=== PATIENT | male | born 1990 | race Caucasian/White ===

== ENCOUNTER 2017-12-25 07:51 | Day surgery (SDC) | payer OTHER ==
[2017-12-25] MEDS ORDERED: PROPOFOL 40 ML (08:36)
[2017-12-25] MEDS ORDERED: LIDOCAINE 2% (SDV) 5 ML INJ (08:36)
== END 2017-12-25 10:03 | disposition home or self-care (01) ==
LOC: GIL 07:51
DX: K29.50 Unspecified chronic gastritis without bleeding (principal)
CPT/HCPCS: 43239; 88305

== ENCOUNTER 2018-03-03 08:07 | Emergency (ER) | payer OTHER ==
[2018-03-03] MEDS: FAMOTIDINE 20 MG INJ IV (09:04)
[2018-03-03] MEDS: SOD CHLORIDE 0.9% 1,000 ML IV (09:04)
[2018-03-03] MEDS: LIDOCAINE/MYLANTA 40 ML BTL PO (09:04)
[2018-03-03] MEDS: ONDANSETRON 4 MG INJ IV (09:04)
[2018-03-03 09:06] LABS: ADD MAN DIFF? NO
[2018-03-03 09:08] LABS: WHITE BLOOD COUNT 14.1 10^3/ul (4.8-10.8)
[2018-03-03 09:08] LABS: BASOPHIL # 0.1 10^3/ul (0.0-0.1); BASOPHILS % 0.4 % (0.0-2.0); HEMATOCRIT 48.4 % (42.0-52.0); HEMOGLOBIN 16.6 g/dl (14.0-18.0); LYMPHOCYTES # 2.3 10^3/ul (0.8-2.9); LYMPHOCYTES % 16.1 % (15.0-51.0); MEAN CORPUSCULAR HEMOGLOBIN 30.5 pg (29.0-33.0); MEAN CORPUSCULAR HGB CONC 34.3 g/dl (32.0-37.0); MEAN CORPUSCULAR VOLUME 88.8 fl (82.0-101.0); MEAN PLATELET VOLUME 10.6 fl (7.4-10.4); MONOCYTE # 1.1 10^3/ul (0.3-0.9); MONOCYTES % 7.6 % (0.0-11.0); NEUTROPHIL # 10.7 10^3/ul (1.6-7.5); NEUTROPHILS % 75.6 % (39.0-77.0); PLATELET COUNT 217 10^3/UL (140-415); RED BLOOD COUNT 5.45 10^6/ul (4.70-6.10); RED CELL DISTRIBUTION WIDTH 13.7 % (11.5-14.5)
[2018-03-03 09:26] LABS: ADD UMIC YES; UR ASCORBIC ACID 20 mg/dL (NEGATIVE); UR BACTERIA FEW /HPF (NONE SEEN); UR BILIRUBIN (Dip) NEGATIVE (NEGATIVE); UR BLOOD (Dip) 1+ mg/dL (NEGATIVE); UR CLARITY SLIGHTLY CLOUDY (CLEAR); UR COLOR AMBER (YELLOW); UR GLUCOSE (Dip) NEGATIVE (NEGATIVE); UR KETONES (Dip) TRACE mg/dL (NEGATIVE); UR LEUKOCYTE ESTERASE (Dip) NEGATIVE Leu/ul (NEGATIVE); UR MUCUS MANY /HPF (NONE SEEN); UR NITRITE (Dip) NEGATIVE (NEGATIVE); UR RBC 1 /HPF (0-5); UR SPECIFIC GRAVITY (Dip) 1.038 (1.003-1.030); UR TOTAL PROTEIN (Dip) 1+ mg/dl (NEGATIVE); UR UROBILINOGEN (Dip) 1+ mg/dL (NEGATIVE); UR WBC 3 /HPF (0-5)
[2018-03-03 09:27] LABS: ALANINE AMINOTRANSFERASE 17 IU/L (13-69); ALBUMIN 5.2 g/dl (3.3-4.9); ALBUMIN/GLOBULIN RATIO 1.44; ALKALINE PHOSPHATASE 73 IU/L (42-121); ANION GAP 15 (5-13); ASPARTATE AMINO TRANSFERASE 19 IU/L (15-46); BILIRUBIN,INDIRECT 1.8 mg/dl (0-1.1); BILIRUBIN,TOTAL 1.8 mg/dl (0.2-1.3); BLOOD UREA NITROGEN 17 mg/dl (7-20); CALCIUM 10.3 mg/dl (8.4-10.2); CARBON DIOXIDE 28 mmol/L (21-31); CHLORIDE 101 mmol/L (97-110); CREATININE 0.83 mg/dl (0.61-1.24); Estimated GFR > 60 mL/min (>60); GLUCOSE 116 mg/dl (70-220); LIPASE 75 U/L (23-300); POTASSIUM 3.8 mmol/L (3.5-5.1); SODIUM 144 mmol/L (135-144); TOTAL PROTEIN 8.8 g/dl (6.1-8.1)
[2018-03-03] MEDS: morphine 10 MG INJ IV (09:59)
== END 2018-03-03 10:44 | disposition home or self-care (01) ==
LOC: FTE 08:07
DX: R11.2 Nausea with vomiting, unspecified (principal)
CPT/HCPCS: 36415; 76705; 80053; 81001; 83690; 85025; 96361; 96374; 96375; 99285-25

== ENCOUNTER 2018-03-24 02:44 | Emergency (ER) | payer OTHER ==
[2018-03-24] MEDS: ONDANSETRON (ODT) 4 MG TAB ODT (05:34)
[2018-03-24] MEDS: FAMOTIDINE 20 MG TAB PO (05:34)
[2018-03-24] MEDS: morphine 4 MG/ML VIAL IM (05:35)
[2018-03-24] MEDS ORDERED: DEXAMETHASONE 10 MG/ML 1 ML INJ IM (06:00)
[2018-03-24] MEDS: DEXAMETHASONE 10 MG/ML 1 ML INJ IV (06:28)
[2018-03-24] MEDS: SOD CHLORIDE 0.9% 1,000 ML IV (06:29)
[2018-03-24] MEDS: LIDOCAINE/MYLANTA 40 ML BTL PO (06:56)
== END 2018-03-24 07:35 | disposition home or self-care (01) ==
LOC: FTE 02:44
DX: G89.29 Other chronic pain (principal)
CPT/HCPCS: 96372; 96374; 99284-25

== ENCOUNTER 2018-08-16 02:02 | Emergency (ER) | payer OTHER ==
[2018-08-16] MEDS: SOD CHLORIDE 0.9% 1,000 ML IV (02:38)
[2018-08-16] MEDS: LORAZEPAM 2 MG INJ IV (02:38)
[2018-08-16] MEDS: morphine 4 MG/ML VIAL IV (02:39)
[2018-08-16] MEDS: ONDANSETRON 4 MG INJ IV (02:39)
[2018-08-16 02:45] LABS: ADD MAN DIFF? NO
[2018-08-16 02:47] LABS: BASOPHILS % 0.3 % (0.0-2.0); HEMATOCRIT 47.7 % (42.0-52.0); HEMOGLOBIN 16.4 g/dl (14.0-18.0); LYMPHOCYTES # 3.2 10^3/ul (0.8-2.9); LYMPHOCYTES % 23.8 % (15.0-51.0); MEAN CORPUSCULAR HEMOGLOBIN 30.5 pg (29.0-33.0); MEAN CORPUSCULAR HGB CONC 34.4 g/dl (32.0-37.0); MEAN CORPUSCULAR VOLUME 88.7 fl (82.0-101.0); MEAN PLATELET VOLUME 10.2 fl (7.4-10.4); MONOCYTE # 1.2 10^3/ul (0.3-0.9); MONOCYTES % 9.2 % (0.0-11.0); NEUTROPHIL # 8.9 10^3/ul (1.6-7.5); NEUTROPHILS % 66.4 % (39.0-77.0); PLATELET COUNT 249 10^3/UL (140-415); RED BLOOD COUNT 5.38 10^6/ul (4.70-6.10); RED CELL DISTRIBUTION WIDTH 13.2 % (11.5-14.5)
[2018-08-16 02:47] LABS: WHITE BLOOD COUNT 13.4 10^3/ul (4.8-10.8)
[2018-08-16 03:06] LABS: ALANINE AMINOTRANSFERASE 25 IU/L (13-69); ALBUMIN 4.8 g/dl (3.3-4.9); ALBUMIN/GLOBULIN RATIO 1.54; ALKALINE PHOSPHATASE 81 IU/L (42-121); AMYLASE 122 U/L (11-123); ANION GAP 17 (5-13); ASPARTATE AMINO TRANSFERASE 29 IU/L (15-46); BILIRUBIN,INDIRECT 3.4 mg/dl (0-1.1); BILIRUBIN,TOTAL 3.4 mg/dl (0.2-1.3); BLOOD UREA NITROGEN 18 mg/dl (7-20); CALCIUM 9.9 mg/dl (8.4-10.2); CARBON DIOXIDE 24 mmol/L (21-31); CHLORIDE 105 mmol/L (97-110); CREATININE 0.88 mg/dl (0.61-1.24); Estimated GFR > 60 mL/min (>60); GLUCOSE 139 mg/dl (70-220); LIPASE 183 U/L (23-300); POTASSIUM 3.5 mmol/L (3.5-5.1); SODIUM 146 mmol/L (135-144); TOTAL PROTEIN 7.9 g/dl (6.1-8.1)
[2018-08-16 05:48] LABS: ADD UMIC YES; UR ASCORBIC ACID NEGATIVE (NEGATIVE); UR BACTERIA FEW /HPF (NONE SEEN); UR BILIRUBIN (Dip) NEGATIVE (NEGATIVE); UR BLOOD (Dip) NEGATIVE (NEGATIVE); UR CLARITY CLEAR (CLEAR); UR COLOR AMBER (YELLOW); UR GLUCOSE (Dip) NEGATIVE (NEGATIVE); UR KETONES (Dip) TRACE mg/dL (NEGATIVE); UR LEUKOCYTE ESTERASE (Dip) NEGATIVE Leu/ul (NEGATIVE); UR MUCUS MANY /HPF (NONE SEEN); UR NITRITE (Dip) NEGATIVE (NEGATIVE); UR RBC 2 /HPF (0-5); UR TOTAL PROTEIN (Dip) 1+ mg/dl (NEGATIVE); UR UROBILINOGEN (Dip) 1+ mg/dL (NEGATIVE); UR WBC 1 /HPF (0-5)
== END 2018-08-16 06:03 | disposition home or self-care (01) ==
LOC: FTE 06:03
DX: G89.29 Other chronic pain (principal); R11.10 Vomiting, unspecified
CPT/HCPCS: 80053; 81001; 82150; 83690; 85025; 87086; 96361; 96374; 96375; 99284-25